=== PATIENT | female | born 1990 | race Caucasian/White ===

== ENCOUNTER 2021-10-25 10:15 | Emergency (ER) | payer BC, OTHER ==
[~2021-10-25] VITALS: Ht 182.9 cm; Wt 125.0 kg
[2021-10-25 10:29] VITALS: BP 141/98
[2021-10-25] MEDS ORDERED: NIRM1TAB5 PO (11:15)
== END 2021-10-25 11:31 | disposition home or self-care (01) ==
LOC: ER 10:17
DX: U07.1 COVID-19 (principal); Z88.2 Allergy status to sulfonamides; Z79.1 Long term (current) use of non-steroidal anti-inflammatories (NSAID); Z79.899 Other long term (current) drug therapy
CPT/HCPCS: 99283